=== PATIENT | female | born 1990 | race Caucasian/White ===

== ENCOUNTER 2016-10-26 12:07 | Inpatient (IN) | payer OTHER ==
[~2016-10-26] VITALS: Ht 170.2 cm; Wt 103.6 kg
[2016-10-26] VITALS (19 sets, daily range): BP systolic 90–140; BP diastolic 50–91
[~2016-10-26 12:07] MED LIST: PEN-VEE K,VEET500 MG PO; ULTRAM50 MG PO
[2016-10-26] MEDS ORDERED: PRENATAL TABLE1 EAC3 PO (12:46)
[2016-10-26 14:59] LABS: EOSINOPHIL (%) 0.2 % (0-5); HEMATOCRIT 36.3 % (36.0-46.0); IMMATURE GRANULOCYTE (%) 0.6 % (0.0-0.7); IMMATURE GRANULOCYTE COUNT 0.1 K/uL; INSTRUMENT ABS NEUTROPHIL CT 10.6 K/uL; LYMPHOCYTE COUNT 1.7 K/uL (1.0-2.8); MCH 31.5 PG (29.0-34.0); MCHC 33.9 G/DL (30.0-36.0); MCV 92.8 FL (83-99); MEAN PLAT.VOLUME 11.5 uM^3 (9.5-12.4); MONOCYTE (%) 5.3 % (3-12); MONOCYTE COUNT 0.7 K/uL (0-0.8); NEUTROPHIL (%) 80.6 % (45-76); NEUTROPHIL COUNT 10.6 K/uL (1.8-6.4); PLATELET COUNT 165 K/uL (156-360); RBC DIS.WIDTH-CV 12.5 % (11.8-14.6); RBC DIS.WIDTH-SD 42.6 % (39-53); RED BLOOD COUNT 3.91 M/uL (3.80-5.20); WHITE BLOOD COUNT 13.2 K/uL (4.1-10.2)
[2016-10-26 16:54] LABS: ANION GAP 10 MEQ/L (2-14); CHLORIDE 107 MEQ/L (99-109); POTASSIUM 3.4 MEQ/L (3.7-5.4); SAMPLE HEMOLYSIS CHECK 0; SAMPLE ICTERIC CHECK 0; SAMPLE LIPEMIA CHECK 0; SODIUM 137 MEQ/L (136-147); TOTAL BILIRUBIN 0.3 MG/DL (0.0-1.0)
[2016-10-26 16:59] LABS: ALKALINE PHOSPHATASE 104 IU/L (3-129); GFR ESTIMATE (CALCULATED) > 59 mL/min/; GLUCOSE 87 mg/dL (70-99); UREA NITROGEN (BUN) 6 mg/dL (9-23)
[2016-10-26 18:45] LABS: UR CREATININE CONCENTRATION 213.5 MG/DL
[2016-10-27] VITALS (12 sets, daily range): BP systolic 100–131; BP diastolic 56–85
[2016-10-28 07:31] VITALS: BP 114/57
[2016-10-28 07:42] LABS: EOSINOPHIL (%) 1.1 % (0-5); EOSINOPHIL COUNT 0.2 K/uL (0-0.3); HEMATOCRIT 30.6 % (36.0-46.0); IMMATURE GRANULOCYTE (%) 0.8 % (0.0-0.7); IMMATURE GRANULOCYTE COUNT 0.1 K/uL; LYMPHOCYTE COUNT 2.2 K/uL (1.0-2.8); MCH 31.1 PG (29.0-34.0); MCV 94.2 FL (83-99); MEAN PLAT.VOLUME 11.9 uM^3 (9.5-12.4); MONOCYTE COUNT 0.8 K/uL (0-0.8); NEUTROPHIL (%) 75.4 % (45-76); PLATELET COUNT 142 K/uL (156-360); RBC DIS.WIDTH-CV 12.9 % (11.8-14.6); RBC DIS.WIDTH-SD 44.3 % (39-53); RED BLOOD COUNT 3.25 M/uL (3.80-5.20); WHITE BLOOD COUNT 13.3 K/uL (4.1-10.2)
[2016-10-28] MEDS ORDERED: IBUPROFEN800 MG PO (09:15)
== END 2016-10-28 13:40 | disposition home or self-care (01) | DRG 775 ==
LOC: LDRP-OP 12:07 → 2WEST 12:08 → LDRP-OP 12-14 11:19
PROVIDERS: Advanced Practice Midwife
DX: O60.14X1 Preterm labor third trimester with preterm delivery third trimester, fetus 1 (principal); O71.4 Obstetric high vaginal laceration alone; O99.334 Smoking (tobacco) complicating childbirth; Z37.0 Single live birth; F17.210 Nicotine dependence, cigarettes, uncomplicated; Z3A.37 37 weeks gestation of pregnancy; O69.89X1 Labor and delivery complicated by other cord complications, fetus 1; O69.82X1 Labor and delivery complicated by other cord entanglement, without compression, fetus 1; E66.9 Obesity, unspecified; O99.214 Obesity complicating childbirth; Z68.35 Body mass index [BMI] 35.0-35.9, adult
CPT/HCPCS: 80053; 82570; 84156; 85025; C1755; G0378; J0595; J2405; J3010; J7120; Q0169